=== PATIENT | female | born 1945 | race Caucasian/White ===

== ENCOUNTER 2021-05-21 16:40 | Emergency (ER) | payer MEDICARE, MEDICAID ==
[~2021-05-21] VITALS: Ht 149 cm; Wt 59.0 kg
--- NOTE | 2021-05-21 17:51 | ED EENT ---
History of Present Illness General Chief Complaint: Eye Problems Stated Complaint: SEEING DOUBLE Nursing Triage Note: ARRIVED VIA AMB TO ROOM 02. STATES SHE STARTED SEEING DOUBLE YESTERDAY WHILE DRIVING AND IT HAS BEEN HAPPENING OFF AND ON SINCE YESTERDAY. DENIES ANY OTHER SX. Source: patient Exam Limitations: no limitations (GLENROY KURTZ MD) History of Present Illness Date Seen by Provider: May 21, 2021 Time Seen by Provider: 17:30 Initial Comments Patient is a 76-year-old female who presents to the emergency department today b y private vehicle with a chief complaint of double vision. Patient states she started having double vision abruptly while she was driving from [place] to [place] yesterday in the car. Patient states when she covers up one eye the double vision resolves. She is never had double vision like this before. Patient states that her right eye has felt "strained" in recent days. She denies blurry vision she denies discrete eye pain. No recent illnesses. She did have a trip and fall and hit the right forehead about 2 weeks ago without a loss of consciousness. Patient is not anticoagulated. Patient states that the double vision is primarily at a distance and with close-up vision she sees single vision. It has not been constant. Patient is treated for hypertension and her blood pressure is controlled currently. All other review of systems reviewed and negative except as stated. Timing/Duration: abrupt Location: eye (R), eye (L) Prearrival Treatment: no prearrival treatment Associated Symptoms: denies symptoms (GLENROY KURTZ MD) Allergies and Home Medications Allergies Coded Allergies: No Known Drug Allergies (Unverified , 05/21/21) Home Medications Clopidogrel Bisulfate 75 Mg Tablet, 75 MG PO DAILY Prescribed by: JAY OROZCO on 05/21/21 3705 Patient Home Medication List Home Medication List Reviewed: Yes (GLENROY KURTZ MD) Review of Systems Review of Systems Constitutional: see HPI Eyes: Other ("Double vision at a distance") Ears: No Symptoms Reported Nose: no symptoms reported Mouth: no symptoms reported Respiratory: no symptoms reported Cardiovascular: no symptoms reported Musculoskeletal: no symptoms reported Skin: no symptoms reported Neurological: Other (Double vision) (GLENROY KURTZ MD) Past Zvpkwos-[id number]-Omacsa Hx Patient Social History Tobacco Use?: No Substance use?: No Alcohol Use?: No (GLENROY KURTZ MD) Immunizations Up To Date Second COVID19 Vaccination Parveen: 01/16/21 COVID19 Vaccine Assistant Business Manager: GALLO (GLENROY KRUTZ MD) Physical Exam Vital Signs Vital Signs - First Documented 05/21/21 16:45 Temp 36.3 Pulse 77 Resp 16 B/P (MAP) 130/92 (105) Pulse Ox 96 O2 Delivery Room Air (JORGE LUIS,JAY K DO) Height, Weight, BMI Height: '" Weight: lbs. oz. 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, no motor/sensory deficits, alert, normal mood/affect, oriented x 3, other (Normal [id number]) Skin: normal color, warm/dry (GLENROY KURTZ MD) Progress/Results/Core Measures Results/Orders Lab Results Laboratory Tests Test 05/21/21 18:05 Range/Units White Blood Count 5.6 4.3-11.0 10^3/uL Red Blood Count 3.79 L 3.80-5.11 10^6/uL Hemoglobin 12.5 11.5-16.0 g/dL Hematocrit 39 35-52 % Mean Corpuscular Volume 103 H 80-99 fL Mean Corpuscular Hemoglobin 33 25-34 pg Mean Corpuscular Hemoglobin Concent 32 32-36 g/dL Red Cell Distribution Width 12.5 10.0-14.5 % Platelet Count 248 130-400 10^3/uL Mean Platelet Volume 10.4 9.0-12.2 fL Immature Granulocyte % (Auto) 1 % Neutrophils (%) (Auto) 38 L 42-75 % Lymphocytes (%) (Auto) 40 12-44 % Monocytes (%) (Auto) 17 H 0-12 % Eosinophils (%) (Auto) 4 0-10 % Basophils (%) (Auto) 1 0-10 % Neutrophils # (Auto) 2.1 1.8-7.8 10^3/uL Lymphocytes # (Auto) 2.2 1.0-4.0 10^3/uL Monocytes # (Auto) 1.0 0.0-1.0 10^3/uL Eosinophils # (Auto) 0.2 0.0-0.3 10^3/uL Basophils # (Auto) 0.0 0.0-0.1 10^3/uL Immature Granulocyte # (Auto) 0.0 0.0-0.1 10^3/uL Sodium Level 144 135-145 MMOL/L Potassium Level 4.1 3.6-5.0 MMOL/L Chloride Level 104 98-107 MMOL/L Carbon Dioxide Level 27 21-32 MMOL/L Anion Gap 13 5-14 MMOL/L Blood Urea Nitrogen 15 7-18 MG/DL Creatinine 0.85 0.60-1.30 MG/DL Estimat Glomerular Filtration Rate > 60 BUN/Creatinine Ratio 18 Glucose Level 71 70-105 MG/DL Calcium Level 9.4 8.5-10.1 MG/DL (JORGE LUIS,JAY K ) My Orders Orders - JAY OROZCO K Ct Angio Head/Neck (05/21/21 18:42) Iohexol Injection (Omnipaque 350 Mg/Ml 1 (05/21/21 19:00) Received Contrast (Hold Metformin- Contr (05/21/21 19:00) Ns (Ivpb) (Sodium Chloride 0.9% Ivpb Bag (05/21/21 19:00) Clopidogrel Tablet (Plavix Tablet) (05/21/21 21:45) (JORGE LUISJAY K ) Medications Given in ED Current Medications Medications Dose Ordered Sig/Mishel Route Start Time Stop Time Status Last Admin Dose Admin Clopidogrel Bisulfate 75 mg ONCE ONCE PO 05/21/21 21:45 05/21/21 21:46 DC 05/21/21 21:49 75 MG Iohexol 100 ml ONCE ONCE IV 05/21/21 19:00 05/21/21 19:04 DC 05/21/21 19:37 75 ML Sodium Chloride 100 ml ONCE ONCE IV 05/21/21 19:00 05/21/21 19:04 DC 05/21/21 19:37 80 ML (JORGE LUIS,JAY K DO) Vital Signs/I&O 05/21/21 05/21/21 05/21/21 05/21/21 16:45 19:40 21:00 21:55 Temp 36.3 Pulse 77 78 80 72 Resp 16 22 14 14 B/P (MAP) 130/92 (105) 159/112 (128) 132/86 (101) 136/78 (97) Pulse Ox 96 97 95 98 O2 Delivery Room Air Room Air Room Air Room Air 05/21/21 21:55 Temp 36.3 Pulse 72 Resp 14 B/P (MAP) 136/78 (97) Pulse Ox 98 O2 Delivery Room Air (JAY OROZCO DO) Blood Pressure Mean: 105 Progress Progress Note : Time: 17:49 Progress Note Patient will have some basic laboratory studies to evaluate electrolytes and hemoglobin hematocrit. We will also do a noncontrast CT of the brain to rule out any space-occupying lesions/blood. Patient's vital signs are stable. Clinically she looks well. She needs follow-up with her md allergy immunology in [place]. Pending normal studies and imaging will discharge the patient to do this. Care is passed at shift change to Dr. Orozco with studies pending (GLENROY KURTZ MD) Progress Note : Progress Note 1800--ASSUMED CARE FROM DR. KURTZ. ALL STUDIES PENDING. PT HAS NO COMPLAINTS AT THIS TIME MARKED DELAY IN OBTAINING CT ANGIOGRAM, AND ALSO WITH GETTING A REPORT PT STATES SHE LIVES IN [place], [place], AND SEES DR. CARLOS THERE, AND ALSO HAS AN EYE DR IN [place]. ADVISED HER TO FOLLOW UP WITH BOTH OF THOSE DOCTORS TOMORROW, AND THAT SHE WOULD LIKELY NEED REFERRED TO CV SURGEON REGARDING HER CAROTID DISEASE, BUT SHE APPEARS TO HAVE SOME COLLATERAL CIRCULATION, NO EMERGENT NEED FOR ANY PROCEDURES TONIGHT. ADVISED HER OF NO DRIVING (JAY OROZCO DO) Diagnostic Imaging Comments CT HEAD--PER RADIOLOGIST REPORT AT 1842 FINDINGS: Moderate generalized parenchymal volume loss. No CT evidence of a territorial infarction. No intracranial hemorrhage, mass effect, hydrocephalus or extra-axial fluid collection. Visualized paranasal sinuses and mastoids are clear. No acute osseous finding. IMPRESSION: No acute intracranial CT finding. CT ANGIOGRAM HEAD/NECK--PER RADIOLOGIST REPORT AT 2130 Impression: 1: Unremarkable CT scan of the brain for age. There is no abnormal IV contrast enhancement. 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 There are small areas of contrast within the small caliber posterior petrous portion of the right ICA and cavernous portions of the right ICA. There is prominent anterior communicating artery and left A1 FLOR. There is note of small caliber right MCA vessels and distal branches which may be congenital. The cervical right ICA terminus is of unknown age, but possibly chronic. Correlation with prior imaging or history may help better evaluate. 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 This is an anatomical variation. 4: There is moderate stenosis of the origin of the right subclavian artery. 5: There is a 9 mm calcified nodule in the left thyroid lobe. Nonemergent thyroid ultrasound would better evaluate. Reviewed: Reviewed by Me (JAY OROZCO DO) Transfer of Care Time: 18:00 Care transferred to: Dr Orozco (GLENROY KURTZ MD) Departure Impression Primary Impression: Diplopia Additional Impression: Carotid artery occlusion Disposition: HOME, SELF-CARE Condition: Stable Departure-Patient Inst. Referrals: DAYANNA CARLOS DO (PCP/Family) Primary Care Physician Patient Instructions: Double Vision (DC), Carotid Artery Disease (DC) Add. Discharge Instructions: NO DRIVING OR OPERATING ANY MACHINERY, ETC. FOLLOW UP WITH YOUR EYE DR KARIME BEARDENKARIME TOMORROW FOLLOW UP WITH YOUR FAMILY TOMORROW All discharge instructions reviewed with patient and/or family. Voiced understanding. Scripts Clopidogrel Bisulfate (Plavix) 75 Mg Tablet 75 MG PO DAILY, #10 TAB Prov: JAY OROZCO DO 05/21/21 GLENROY KURTZ MD May 21, 2021 17:51 JAY OROZCO DO May 21, 2021 18:27
[2021-05-21 18:14] LABS: BASOPHILS % (AUTO) 1 % (0-10); EOSINOPHILS # (AUTO) 0.2 10^3/uL (0.0-0.3); EOSINOPHILS % (AUTO) 4 % (0-10); HEMATOCRIT 39 % (35-52); HEMOGLOBIN 12.5 g/dL (11.5-16.0); LYMPHOCYTES # (AUTO) 2.2 10^3/uL (1.0-4.0); LYMPHOCYTES % (AUTO) 40 % (12-44); MEAN CORPUSCULAR HEMOGLOBIN 33 pg (25-34); MEAN CORPUSCULAR HGB CONC 32 g/dL (32-36); MEAN CORPUSCULAR VOLUME 103 fL (80-99); MEAN PLATELET VOLUME 10.4 fL (9.0-12.2); MONOCYTES % (AUTO) 17 % (0-12); NEUTROPHILS # (AUTO) 2.1 10^3/uL (1.8-7.8); NEUTROPHILS % (AUTO) 38 % (42-75); PLATELET COUNT 248 10^3/uL (130-400); WHITE BLOOD COUNT 5.6 10^3/uL (4.3-11.0)
[2021-05-21 18:21] LABS: CHLORIDE 104 MMOL/L (98-107); POTASSIUM 4.1 MMOL/L (3.6-5.0); SODIUM 144 MMOL/L (135-145)
[2021-05-21 18:22] LABS: CALCIUM 9.4 MG/DL (8.5-10.1)
[2021-05-21 18:23] LABS: GLUCOSE 71 MG/DL (70-105)
[2021-05-21 18:25] LABS: CARBON DIOXIDE 27 MMOL/L (21-32)
[2021-05-21 18:27] LABS: CREATININE SERUM 0.85 MG/DL (0.60-1.30); GFR ESTIMATED > 60
[2021-05-21 18:28] LABS: BUN/CREATININE RATIO 18
--- NOTE | 2021-05-21 18:39 | Diagnostic Imaging Report ---
PROCEDURE: CT head without contrast. TECHNIQUE: Multiple contiguous axial images were obtained through the brain without the use of intravenous contrast. Auto Exposure Controls were utilized during the CT exam to meet ALARA standards for radiation dose reduction. INDICATION: Fall two weeks ago. Headache. Double vision. COMPARISON: None. FINDINGS: Moderate generalized parenchymal volume loss. No CT evidence of a territorial infarction. No intracranial hemorrhage, mass effect, hydrocephalus or extra-axial fluid collection. Visualized paranasal sinuses and mastoids are clear. No acute osseous finding. IMPRESSION: No acute intracranial CT finding. Dictated by: Dictated on workstation # [id number]
[2021-05-21] MEDS ORDERED: NS 100 ML (IVPB) BAG IV ONE (19:00)
[2021-05-21] MEDS ORDERED: IOHEXOL 350 MG/ML 100 ML (OMNIPAQUE 350) VIAL IV ONE (19:00)
[2021-05-21] MEDS ORDERED: HOLD METFORMIN - RECEIVED CONTRAST 20 ML VIAL IV SCH (19:00)
--- NOTE | 2021-05-21 21:19 | Diagnostic Imaging Report ---
Clinical indications: Patient with double vision since yesterday. Exams: 1: Head CT with IV contrast. Auto Exposure Controls were utilized during the CT exam to meet ALARA standards for radiation dose reduction. 2: CT angiogram of the head and neck performed with 100 cc of Omnipaque 350 IV contrast. Sagittal and coronal MIP reformations were created for better visualization of vascular anatomy. Comparison: Head CT without contrast dated 05/21/2021. Findings: Head CT: There is no evidence of acute cerebral infarct, intracranial hemorrhage or gross mass effect. There is no abnormal IV contrast enhancement. The brain parenchymal volume appears appropriate for patient's age. There is normal quiles-white matter distinction. There is no significant midline shift or herniation. There is no evidence of hydrocephalus. The basal cisterns are unremarkable. The skull, extracranial soft tissue, and orbits are unremarkable. There is mild mucosal thickening involving left maxillary sinus. Temporal bones show no significant abnormality. CT angiogram: There is dense contrast bolus seen within the right subclavian vein and superior vena cava which causes streak artifact obscuring portions of the aortic arch. There is common origin of the brachiocephalic artery and left common carotid consistent with bovine arch. The left subclavian artery is patent. The brachiocephalic artery is patent. There is moderate stenosis involving the origin of the right subclavian artery due to atherosclerotic disease. There is tortuosity of the proximal right common carotid artery with mild to moderate stenosis noted due to tortuosity. There is an area of tortuosity and mild narrowing involving the mid right common carotid artery. 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 There is reconstitution of the petrous portion of the cervical right ICA in the posterior portion with occlusion throughout the rest of the petrous portion. There are small intermittent areas of calcification involving the cavernous right ICA. There is reconstitution of the right ICA terminus noted. The right ECA is patent. Left common carotid artery is patent. There is atherosclerotic disease involving the origin and bulb of the left cervical ICA with mild narrowing. Otherwise, the cervical left ICA and left ECA are patent. Tortuous distal cervical left ICA is seen. The petrous, cavernous and supraclinoid ICA are patent. There is a prominent left A1 FLOR and anterior communicating artery. There is a small caliber right A1 FLOR. There appears to be a fenestrated or duplicated anterior communicating artery. The A2 ACAs and distal branches are patent. There is mild narrowing of the origin of the left MCA. The left MCA is otherwise patent and its distal branches are patent. There is a small caliber right M1 MCA, M2 MCAs and distal branches but they are patent. This appearance may be congenital. The bilateral cervical vertebral arteries are patent. Dominant left cervical vertebral artery is noted. The intradural right vertebral artery ends in PICA. The left PICA is patent. The intradural left vertebral artery and visualized portions of the pre-PICA right vertebral artery are patent. The basilar artery is small in size but becomes more normal in caliber in its midportion. Persistent left trigeminal artery is suspected. There is atherosclerotic disease involving the left trigeminal artery remnant with areas of mild to moderate narrowing. The bilateral superior cerebellar arteries are patent. left NUTRITION THERAPIST is seen, has small caliber left P1 NUTRITION THERAPIST. The left P3 stave log ripsaw operator are patent. The right P3 stave log ripsaw operator are patent. The dural venous sinuses are patent. Arachnoid granulations in the bilateral transverse dural venous sinuses are noted. There is a 9 mm densely calcified nodule in the left thyroid lobe. Visualized upper lung chatterjee show no significant abnormality. There is cervical spine vertebral body spurs and facet arthropathy. Impression: 1: Unremarkable CT scan of the brain for age. There is no abnormal IV contrast enhancement. 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 There are small areas of contrast within the small caliber posterior petrous portion of the right ICA and cavernous portions of the right ICA. There is prominent anterior communicating artery and left A1 FLOR. There is note of small caliber right MCA vessels and distal branches which may be congenital. The cervical right ICA terminus is of unknown age, but possibly chronic. Correlation with prior imaging or history may help better evaluate. 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 This is an anatomical variation. 4: There is moderate stenosis of the origin of the right subclavian artery. 5: There is a 9 mm calcified nodule in the left thyroid lobe. Nonemergent thyroid ultrasound would better evaluate. Dictated by: Dictated on workstation # [id number]
[2021-05-21] MEDS ORDERED: CLOP75TA69 PO (21:37)
[2021-05-21] MEDS ORDERED: CLOPIDOGREL 75 MG (PLAVIX) TABLET PO ONE (21:45)
[2021-05-21 21:55] VITALS: BP 136/78
== END 2021-05-21 21:55 | disposition home or self-care (01) ==
LOC: ER 16:44
DX: I65.21 Occlusion and stenosis of right carotid artery (principal); I10 Essential (primary) hypertension; Z91.81 History of falling
CPT/HCPCS: 36415; 70450; 70496; 70498; 80048; 85025